=== PATIENT | female | born 1990 | race Caucasian/White ===

== ENCOUNTER 2018-08-09 19:10 | Emergency (ER) | payer OTHER ==
[2018-08-09 19:18] VITALS: BP 126/82
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
== END 2018-08-09 19:47 | disposition home or self-care (01) ==
DX: S16.1XXA Strain of muscle, fascia and tendon at neck level, initial encounter (principal); S46.912A Strain of unspecified muscle, fascia and tendon at shoulder and upper arm level, left arm, initial encounter; V49.49XA Driver injured in collision with other motor vehicles in traffic accident, initial encounter; Y92.410 Unspecified street and highway as the place of occurrence of the external cause

== ENCOUNTER 2018-08-12 09:02 | Emergency (ER) | payer OTHER ==
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
[2018-08-12 10:09] VITALS: BP 121/91
== END 2018-08-12 10:10 | disposition home or self-care (01) ==
DX: M70.52 Other bursitis of knee, left knee (principal)